=== PATIENT | male | born 1950 | race Caucasian/White ===

== ENCOUNTER 2021-06-03 01:11 | Emergency (ER) | payer MEDICARE ==
[2021-06-03 02:18] LABS: HEMOGLOBIN 15.8 gm/dl (14.0-17.5); RED BLOOD COUNT 4.76 M/UL (4.20-5.50); WHITE BLOOD COUNT 13.3 K/UL (4.5-11.0)
== END 2021-06-03 09:20 | disposition short-term general hospital (02) ==
LOC: ER1 01:11
PROVIDERS: Student in an Organized Health Care Education/Training Program
DX: I70.8 Atherosclerosis of other arteries (principal); I10 Essential (primary) hypertension; F17.210 Nicotine dependence, cigarettes, uncomplicated
CPT/HCPCS: 80053; 81001; 82550; 82553; 83605; 83690; 84484; 85025; 93005; 96374; 96375; 96376; 99285; J1170; J1885; J2270; J2405; J7030; Q9967